=== PATIENT | male | born 1970 | race Caucasian/White ===

== ENCOUNTER 2016-12-17 05:43 | Observation (INO) ==
[2016-12-17] MEDS ORDERED: Aspirin 81 MG TAB.CHEW PO ONE (05:47)
[2016-12-17 06:06] LABS: Basophils % 0.4 %; Eosinophils # 0.1 K/mcL (0.0-0.6); Eosinophils % 1.6 %; Hematocrit 45.4 % (37.5-50.1); Hemoglobin 15.5 g/dL (12.9-16.9); Immature Granulocytes % 0.5 % (0-4); Lymphocytes # 2.6 K/mcL (0.6-4.6); Lymphocytes % 34.2 %; Mean Corpuscular HGB Conc 34.1 g/dL (31.6-35.5); Mean Corpuscular Hemoglobin 30.2 pg (28.0-33.3); Mean Corpuscular Volume 88.5 fL (83.0-100.0); Mean Platelet Volume 8.8 fL (9.4-12.4); Monocytes # 0.7 K/mcL (0.0-1.3); Monocytes % 9.6 %; Neutrophils # 4.1 K/mcL (1.6-8.9); Platelet Count 225 K/mcL (140-400); Red Blood Count 5.13 M/mcL (4.19-5.50); Red Cell Distribution Width 12.6 % (11.5-14.5); Segmented Neutrophils % 53.7 %
[2016-12-17] MEDS ORDERED: *HR* FentaNYL (PF) 100 MCG/2 ML VIAL IVP ONE (06:11)
[2016-12-17] MEDS ORDERED: Ondansetron 4 MG/2 ML VIAL IVP ONE (06:11)
--- NOTE | 2016-12-17 06:16 | Emergency Department Note ---
Disposition Clinical Impression: Chest pain Qualifiers: Chest pain type: unspecified Qualified Code(s): R07.9 - Chest pain, unspecified Disposition: Still a Patient Condition: Good Forms: ED Satisfaction Letter Time of Disposition: 06:39 General Adult HPI - General Chief complaint: ED Chest Pain Stated complaint: Chest pain Time Seen by Provider: 12/17/16 05:46 Source: patient Limitations: no limitations Nursing Notes Reviewed: Yes Vital Signs Reviewed: Yes - History of Present Illness HPI Narrative: Patient was awoken at 5:00 this morning with chest pain. Sharp in nature and reproducible on palpation also upper quadrant pain. Does have associated nausea and the pain radiates to his left shoulder. Has not tried anything to relieve the pain the pain gets worse when he takes a deep breath. Pain Scale: 10 - Related Data Home Medications Medication Instructions Recorded Confirmed Aspirin [Adult Low Dose Aspirin EC] 81 mg PO DAILY 09/27/15 09/27/15 Atorvastatin [Lipitor] 40 mg PO DAILY 09/27/15 09/27/15 Lisinopril [Zestril] 20 mg PO DAILY 09/27/15 09/27/15 Metoprolol XL (24 HR) Succ [Toprol 50 mg PO DAILY 09/27/15 09/27/15 Xl] Tamsulosin [Flomax] 0.4 mg PO DAILY 09/27/15 09/27/15 Previous Rx's Medication Instructions Recorded Hydrocodone/Acetaminophen [[place] 1 tab PO Q6H PRN #15 tab 09/27/15 5-325 Tablet] Allergies Allergy/AdvReac Type Severity Reaction Status Date / Time morphine AdvReac Headache Verified 09/26/16 00:21 nitroglycerin AdvReac "STOPS Verified 09/26/16 00:21 HEART" Review of Systems: Patient denies headache or visual changes. He does report left-sided chest pain and upper abdominal pain that radiates to his left shoulder. Does have associated shortness of breath. Also associated nausea. No vomiting. Denies any diarrhea. Does report some mild rectal bleeding that is consistent with his anal fissure. He denies any urinary symptoms. He denies any hematemesis. He denies any swelling to the extremities. He does report a cough for the past month that is intermittent with no productivity. He denies any fevers. This is associated due to the pain. All systems ED: reviewed and negative except as stated. Past Medical History - Past Medical History Attestation: Yes The following information was validated with the patient. Medical history: Reports: coronary artery disease, hyperlipidemia, hypertension , kidney stones Surgical history: Reports: other Psychiatric history: Reports: no psych history - Social History Smoking Status: Never smoker Smokeless Tobacco Status: No Alcohol use: Reports: occasionally Drug use: Reports: none Physical Exam - General Limitations: no limitations General appearance: alert, anxious, in distress (Anxiously holding his chest.) - Head Head exam: atraumatic, normocephalic, normal inspection - Eye Eye exam: Present: normal appearance, PERRL, EOMI, scleral icterus - ENT ENT exam: normal exam, normal oropharynx, mucous membranes moist - Neck Neck exam: Present: normal inspection, full ROM, trachea midline. Absent: tenderness, meningismus - Chest Chest inspection: Present: normal inspection, symmetric chest wall rise, tenderness (To palpation of sternum. This reproduces his chest pain.). Absent : rash - Respiratory Respiratory exam: Present: normal lung sounds bilaterally. Absent: respiratory distress, wheezes, accessory muscle use - Cardiovascular Cardiovascular exam: Present: regular rate, normal rhythm, normal heart sounds - Abdominal Exam Abdominal exam: Present: soft, tenderness (2 right upper and left upper quadrant.), normal bowel sounds. Absent: distention, guarding, rebound, rigidity, organomegaly - Extremities Exam Extremities exam: Present: normal inspection, full ROM, normal capillary refill. Absent: tenderness, pedal edema - Back Exam Back exam: Present: normal inspection, full ROM. Absent: tenderness - Neurological Exam Neurological exam: Present: alert, oriented X3 - Psychiatric Psychiatric exam: Present: anxious - Skin Skin exam: Present: warm, dry, intact, normal color. Absent: rash, cyanosis, diaphoresis, erythema Course Course Narrative: [facility] of a sharp chest pain that radiates to his left shoulder. He states this began at 5:00 this morning when he woke him up. He does have associated nausea but no vomiting. He states that he did have a heart catheter a little over a year ago and was told that he had 30% blockage in one of his arteries. He states he has a significant cardiac history on both sides of his family and he is engaged in his father from a heart attack. Patient is sitting on the side of the bed clutching his chest and rocking. He is cussing frequently. He is also complaining of an upper abdominal pain. He states the pain radiates across his abdomen and is associated with the chest pain. States he cannot take a deep breath due to the pain. His lung sounds are clear heart sounds are normal. His abdomen is soft on exam but he does have tenderness in his upper quadrants. He does not have any edema to his extremities. We will do a cardiac workup on the patient and likely admit him to the hospital for chest pain. We will also scan patient's chest due to his sharp pain and how anxious appearing he is to rule out a dissection. Of note he states he does have some minor rectal bleeding that is consistent with his anal fissure. He states that this is a problem he has had for several years and has been worked up for this. Vital Signs Temperature 97.6 F 12/17/16 05:43 Pulse Rate 77 12/17/16 05:43 Respiratory Rate 22 12/17/16 05:43 Blood Pressure 180/93 12/17/16 05:43 O2 Sat by Pulse Oximetry 95 12/17/16 05:43 Temperature 97.6 F 12/17/16 05:43 Pulse Rate 77 12/17/16 05:43 Respiratory Rate 22 12/17/16 05:43 Blood Pressure 180/93 12/17/16 05:43 O2 Sat by Pulse Oximetry 99 12/17/16 05:57 Oxygen Delivery Oxygen Delivery Room Air Medical Decision Making - Medical Records Medical records reviewed: Yes I reviewed the patient's medical records. - Lab Data Lab results reviewed: Yes I reviewed the patient's lab results. Result diagrams: 12/17/16 05:55 12/17/16 05:55 Lab Results 12/17/16 12/17/16 12/17/16 Range/Units 05:55 05:55 05:55 WBC 7.7 (4.3-11.1) K/mcL RBC 5.13 (4.19-5.50) M/mcL Hgb 15.5 (12.9-16.9) g/dL Hct 45.4 (37.5-50.1) % MCV 88.5 (83.0-100.0) fL MCH 30.2 (28.0-33.3) pg MCHC 34.1 (31.6-35.5) g/dL RDW 12.6 (11.5-14.5) % Plt Count 225 (140-400) K/mcL MPV 8.8 L (9.4-12.4) fL Immature Gran % 0.5 (0-4) % Seg Neutrophils % 53.7 % Lymphocytes % 34.2 % Monocytes % 9.6 % Eosinophils % 1.6 % Basophils % 0.4 % Neutrophils # 4.1 (1.6-8.9) K/mcL Lymphocytes # 2.6 (0.6-4.6) K/mcL Monocytes # 0.7 (0.0-1.3) K/mcL Eosinophils # 0.1 (0.0-0.6) K/mcL Basophils # 0.0 (0.0-0.2) K/mcL PT 10.7 (9.4-12.1) Seconds INR 1.0 APTT 35.0 (26.0-36.0) Seconds Sodium 141 (136-145) mEq/L Potassium 3.4 L (3.5-4.5) mEq/L Chloride 107 (98-109) mEq/L Carbon Dioxide 24 (19-29) mEq/L BUN 11 (8-26) mg/dL Creatinine 0.98 (0.72-1.25) mg/dL Est GFR ( Amer) > 60 (> 60) Est GFR (Non-Af Amer) > 60 (> 60) BUN/Creatinine Ratio 11 (6-26) Glucose 119 H (70-99) mg/dL Calculated Osmolality 293 (280-300) Calcium 9.0 (8.6-10.8) mg/dL Total Bilirubin 2.2 H (0.2-1.2) mg/dL Direct Bilirubin 0.7 H (0.0-0.5) mg/dL Indirect Bilirubin 1.5 H (0.0-1.2) mg/dL AST 34 (5-34) Units/L ALT 50 (0-55) Units/L Alkaline Phosphatase 93 (38-126) Units/L Troponin I (0-0.03) ng/mL Serum Total Protein 7.4 (6.0-8.3) g/dL Albumin 4.0 (3.5-5.0) g/dL Globulin 3.4 (2.4-3.5) g/dL Albumin/Globulin Ratio 1.2 (1.1-2.2) Lipase 19 (8-78) Units/L // Range/Units 05:55 WBC (4.3-11.1) K/mcL RBC (4.19-5.50) M/mcL Hgb (12.9-16.9) g/dL Hct (37.5-50.1) % MCV (83.0-100.0) fL MCH (28.0-33.3) pg MCHC (31.6-35.5) g/dL RDW (11.5-14.5) % Plt Count (140-400) K/mcL MPV (9.4-12.4) fL Immature Gran % (0-4) % Seg Neutrophils % % Lymphocytes % % Monocytes % % Eosinophils % % Basophils % % Neutrophils # (1.6-8.9) K/mcL Lymphocytes # (0.6-4.6) K/mcL Monocytes # (0.0-1.3) K/mcL Eosinophils # (0.0-0.6) K/mcL Basophils # (0.0-0.2) K/mcL PT (9.4-12.1) Seconds INR APTT (26.0-36.0) Seconds Sodium (136-145) mEq/L Potassium (3.5-4.5) mEq/L Chloride (98-109) mEq/L Carbon Dioxide (19-29) mEq/L BUN (8-26) mg/dL Creatinine (0.72-1.25) mg/dL Est GFR ( Amer) (> 60) Est GFR (Non-Af Amer) (> 60) BUN/Creatinine Ratio (6-26) Glucose (70-99) mg/dL Calculated Osmolality (280-300) Calcium (8.6-10.8) mg/dL Total Bilirubin (0.2-1.2) mg/dL Direct Bilirubin (0.0-0.5) mg/dL Indirect Bilirubin (0.0-1.2) mg/dL AST (5-34) Units/L ALT (0-55) Units/L Alkaline Phosphatase (38-126) Units/L Troponin I 0.01 (0-0.03) ng/mL Serum Total Protein (6.0-8.3) g/dL Albumin (3.5-5.0) g/dL Globulin (2.4-3.5) g/dL Albumin/Globulin Ratio (1.1-2.2) Lipase (8-78) Units/L - EKG Data EKG #1 EKG attestation: Yes I reviewed and interpreted this EKG. EKG results narrative: Normal sinus rhythm at a rate of 71. NE interval is 158. QRS duration is 98. QT is 385. QTC is 408. No signs of acute ischemia. No significant change from previous EKG dated 09/24/2015. Leanna.B.[email or web address] - Leanna.Kyaw Background: Presenting Complaint (Chest pain that woke him up at 5:00 this morning. Also having upper quadrant abdominal pain. Associated nausea. The pain radiates to his left shoulder.), Relevant PMH, Meds, & Allergies (Has had a cardiac catheter greater than a year ago that showed 30% stenosis. Recent increase in his hypertension medication.) Assessment: Course and respsone to treatment (Patient was given 324 of aspirin, Zofran, and fentanyl. Of note he is allergic to morphine and nitroglycerin.), Outstanding Labs Recommendation: Recommendation based on pending studies, treatments, or consults (Likely admit patient to the hospital for cardiac workup. EKG showed no ST elevation or depression. We are still waiting a CTA to rule out dissection.) Leanna.[email or web address] Report Given to: Dr Cynthia Persaud Repor Time: 06:41
[2016-12-17 06:18] LABS: BUN/Creatinine Ratio 11 (6-26); Blood Urea Nitrogen 11 mg/dL (8-26); Carbon Dioxide 24 mEq/L (19-29); Chloride 107 mEq/L (98-109); Glucose 119 mg/dL (70-99); Osmolality,Calculated 293 (280-300); Potassium 3.4 mEq/L (3.5-4.5); Prothrombin Time 10.7 Seconds (9.4-12.1); Sodium 141 mEq/L (136-145); eGFR For African Americans > 60 (> 60); eGFR For Non-African Americans > 60 (> 60)
--- NOTE | 2016-12-17 06:27 | Emergency Department Note ---
START Narrative - START START: I examined this patient and my medical decision-making was reviewed with the SHEET TAKER/PA/Advanced Practice Nurse/Resident Physician. I agree with the documented findings, disposition and treatment plan as described except to the extent set forth below. Emergency department complaining of chest pain. Patient states the pains in his lower chest and radiates across both sides. Also radiates to his left shoulder. Describes it as sharp. States he has had a prior catheter that showed a small blockage. No stents. On exam he is uncomfortable rocking in the bed. Lungs clear and heart regular. Plan. EKG has no ischemic changes. Cardiac workup. We will CTA for dissection. Signed out to Dr. Thornton pending disposition after CTs.
[2016-12-17 06:30] LABS: Alanine Aminotransferase 50 Units/L (0-55); Albumin/Globulin Ratio 1.2 (1.1-2.2); Alkaline Phosphatase 93 Units/L (38-126); Aspartate Amino Transferase 34 Units/L (5-34); Bilirubin,Direct 0.7 mg/dL (0.0-0.5); Bilirubin,Indirect 1.5 mg/dL (0.0-1.2); Bilirubin,Total 2.2 mg/dL (0.2-1.2); Globulin 3.4 g/dL (2.4-3.5); Lipase 19 Units/L (8-78); Total Protein 7.4 g/dL (6.0-8.3)
--- NOTE | 2016-12-17 07:20 | Emergency Department Note ---
Disposition Clinical Impression: Chest pain Qualifiers: Chest pain type: unspecified Qualified Code(s): R07.9 - Chest pain, unspecified Disposition: Admitted As Inpatient Condition: Good Referrals: Pritesh Crow Jr, MD [Primary Care Provider] - Forms: ED Satisfaction Letter Time of Disposition: 08:17 General Adult HPI - General Chief complaint: ED Chest Pain Stated complaint: Chest pain Time Seen by Provider: 12/17/16 05:46 Source: patient Limitations: no limitations - History of Present Illness Pain Scale: 3 - Related Data Home Medications Medication Instructions Recorded Confirmed Aspirin [Adult Low Dose Aspirin EC] 81 mg PO DAILY 09/27/15 09/27/15 Atorvastatin [Lipitor] 40 mg PO DAILY 09/27/15 09/27/15 Lisinopril [Zestril] 20 mg PO DAILY 09/27/15 09/27/15 Metoprolol XL (24 HR) Succ [Toprol 50 mg PO DAILY 09/27/15 09/27/15 Xl] Tamsulosin [Flomax] 0.4 mg PO DAILY 09/27/15 09/27/15 Previous Rx's Medication Instructions Recorded Hydrocodone/Acetaminophen [[place] 1 tab PO Q6H PRN #15 tab 09/27/15 5-325 Tablet] Allergies Allergy/AdvReac Type Severity Reaction Status Date / Time morphine AdvReac Headache Verified 09/26/16 00:21 nitroglycerin AdvReac "STOPS Verified 09/26/16 00:21 HEART" Past Medical History - Past Medical History Medical history: Reports: coronary artery disease, hyperlipidemia, hypertension , kidney stones Surgical history: Reports: other Psychiatric history: Reports: no psych history - Social History Smoking Status: Never smoker Smokeless Tobacco Status: No Alcohol use: Reports: occasionally Drug use: Reports: none Physical Exam - General Limitations: no limitations General appearance: alert, anxious, in distress (Anxiously holding his chest.) Course - Reevaluation(s) Reevaluation #1: 46-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 He describes across his lower chest severe. Workup included cardiac and also a CT scan to rule out a dissection. The patient has multiple risk factors his father had his first RI at about 45 years of age and actually from heart disease. Patient has a history of hypertension hypercholesterolemia. Patient also has a slight elevation in his bilirubin and he states he's had that his entire life. Time: 07:18 - Consultations Consultation #1: Discussed with Dr. Puente, admit. Time: 08:16 Vital Signs Temperature 97.6 F 12/17/16 05:43 Pulse Rate 77 12/17/16 05:43 Respiratory Rate 22 12/17/16 05:43 Blood Pressure 180/93 12/17/16 05:43 O2 Sat by Pulse Oximetry 95 12/17/16 05:43 Temperature 97.6 F 12/17/16 05:43 Pulse Rate 60 12/17/16 07:20 Respiratory Rate 16 12/17/16 07:20 Blood Pressure 162/99 12/17/16 07:20 O2 Sat by Pulse Oximetry 99 12/17/16 07:20 Oxygen Delivery Oxygen Delivery Room Air Medical Decision Making - Lab Data Result diagrams: 12/17/16 05:55 12/17/16 05:55 Lab Results 12/17/16 12/17/16 12/17/16 Range/Units 05:55 05:55 05:55 WBC 7.7 (4.3-11.1) K/mcL RBC 5.13 (4.19-5.50) M/mcL Hgb 15.5 (12.9-16.9) g/dL Hct 45.4 (37.5-50.1) % MCV 88.5 (83.0-100.0) fL MCH 30.2 (28.0-33.3) pg MCHC 34.1 (31.6-35.5) g/dL RDW 12.6 (11.5-14.5) % Plt Count 225 (140-400) K/mcL MPV 8.8 L (9.4-12.4) fL Immature Gran % 0.5 (0-4) % Seg Neutrophils % 53.7 % Lymphocytes % 34.2 % Monocytes % 9.6 % Eosinophils % 1.6 % Basophils % 0.4 % Neutrophils # 4.1 (1.6-8.9) K/mcL Lymphocytes # 2.6 (0.6-4.6) K/mcL Monocytes # 0.7 (0.0-1.3) K/mcL Eosinophils # 0.1 (0.0-0.6) K/mcL Basophils # 0.0 (0.0-0.2) K/mcL PT 10.7 (9.4-12.1) Seconds INR 1.0 APTT 35.0 (26.0-36.0) Seconds Sodium 141 (136-145) mEq/L Potassium 3.4 L (3.5-4.5) mEq/L Chloride 107 (98-109) mEq/L Carbon Dioxide 24 (19-29) mEq/L BUN 11 (8-26) mg/dL Creatinine 0.98 (0.72-1.25) mg/dL Est GFR ( Amer) > 60 (> 60) Est GFR (Non-Af Amer) > 60 (> 60) BUN/Creatinine Ratio 11 (6-26) Glucose 119 H (70-99) mg/dL Calculated Osmolality 293 (280-300) Calcium 9.0 (8.6-10.8) mg/dL Total Bilirubin 2.2 H (0.2-1.2) mg/dL Direct Bilirubin 0.7 H (0.0-0.5) mg/dL Indirect Bilirubin 1.5 H (0.0-1.2) mg/dL AST 34 (5-34) Units/L ALT 50 (0-55) Units/L Alkaline Phosphatase 93 (38-126) Units/L Troponin I (0-0.03) ng/mL Serum Total Protein 7.4 (6.0-8.3) g/dL Albumin 4.0 (3.5-5.0) g/dL Globulin 3.4 (2.4-3.5) g/dL Albumin/Globulin Ratio 1.2 (1.1-2.2) Lipase 19 (8-78) Units/L // Range/Units 05:55 WBC (4.3-11.1) K/mcL RBC (4.19-5.50) M/mcL Hgb (12.9-16.9) g/dL Hct (37.5-50.1) % MCV (83.0-100.0) fL MCH (28.0-33.3) pg MCHC (31.6-35.5) g/dL RDW (11.5-14.5) % Plt Count (140-400) K/mcL MPV (9.4-12.4) fL Immature Gran % (0-4) % Seg Neutrophils % % Lymphocytes % % Monocytes % % Eosinophils % % Basophils % % Neutrophils # (1.6-8.9) K/mcL Lymphocytes # (0.6-4.6) K/mcL Monocytes # (0.0-1.3) K/mcL Eosinophils # (0.0-0.6) K/mcL Basophils # (0.0-0.2) K/mcL PT (9.4-12.1) Seconds INR APTT (26.0-36.0) Seconds Sodium (136-145) mEq/L Potassium (3.5-4.5) mEq/L Chloride (98-109) mEq/L Carbon Dioxide (19-29) mEq/L BUN (8-26) mg/dL Creatinine (0.72-1.25) mg/dL Est GFR ( Amer) (> 60) Est GFR (Non-Af Amer) (> 60) BUN/Creatinine Ratio (6-26) Glucose (70-99) mg/dL Calculated Osmolality (280-300) Calcium (8.6-10.8) mg/dL Total Bilirubin (0.2-1.2) mg/dL Direct Bilirubin (0.0-0.5) mg/dL Indirect Bilirubin (0.0-1.2) mg/dL AST (5-34) Units/L ALT (0-55) Units/L Alkaline Phosphatase (38-126) Units/L Troponin I 0.01 (0-0.03) ng/mL Serum Total Protein (6.0-8.3) g/dL Albumin (3.5-5.0) g/dL Globulin (2.4-3.5) g/dL Albumin/Globulin Ratio (1.1-2.2) Lipase (8-78) Units/L - Radiology Data Radiology results reviewed: Yes I reviewed the patient's radiology results. Chest X-Ray 12/17/16 05:47 IMPRESSION: No acute findings. D/ / Janny Gomez MD / Janny Gomez MD Interpreting Provider: Janny Gomez MD Abdomen/Pelvis CTA 12/17/16 06:25 IMPRESSION: 1. No evidence of acute aortic pathology. No aneurysm, dissection or significant plaque. 2. No acute pulmonary findings. 3. No acute findings within the abdomen or pelvis. Colonic diverticulosis with no acute features. 4. Nonobstructive bilateral nephrolithiasis. D/ / Isac Olivas MD / Isac Olivas MD Interpreting Provider: Isac Olivas MD Chest CTA 12/17/16 06:25
--- NOTE | 2016-12-17 09:04 | Internal Med History&Physical ---
Date of Encounter: 12/17/16 Time of Encounter: 09:00 Assessment and Plan (1) Precordial chest pain Current visit: Yes Status: Acute Patient has typical precordial chest pain that started at rest. He has heavy family history of premature coronary artery disease, male gender and hypertension as risk factors. He has had stress test in the past which was negative. He has had a cardiac catheter 2 years ago which per his report had a 30% blockage. We will request catheterization records from [facility]. Consult cardiology. phototypesetting equipment monitor. Trend troponin. He is allergic to morphine and nitroglycerin. We will use IV fentanyl for chest pain. (2) Essential hypertension Current visit: Yes Status: Acute We will continue with metoprolol and lisinopril. (3) DVT prophylaxis Current visit: Yes Status: Acute Encourage ambulation. Short stay expected, no pharmacological prophylaxis as indicated. (4) Elevated bilirubin Current visit: Yes Status: Acute He has a history of chronic benign elevated bilirubin, possibly secondary to undiagnosed Gilbert's syndrome. Continue outpatient follow-up. Internal Medicine - H&P: HPI Chief complaint: Chest pain Admitted From: Emergency Dept Plans for Post Hospital Care: Home History of present illness: Mr. Desir is a 46 year old male with past medical history significant for hypertension and hyperlipidemia who presented to the hospital for evaluation of chest pain. The patient states that he woke up at 5 this morning with severe substernal sharp and pressure-like chest pain associated with lightheadedness and nausea. He was brought to the emergency department where he continued to have chest pain and vomited. He states that vomiting gave him some relief. His EKG and troponin were negative. He was given fentanyl, Zofran and aspirin and that brought his pain down to 0/10. Currently his chest pain-free. He was referred for admission. Review of systems: Positive for joint aches and pains including left shoulder lower back and ankle pain. Positive for migraine headaches. The remainder of a temporary review of systems was negative. Family history positive for multiple family members with heart disease including patient's father had an AK at age 50. 2 sisters and the patient's brother suffer with heart disease. Social history: Patient is a lifelong nonsmoker, drinks alcohol socially and does not use any recreational drugs. 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 Past Med Surg Social Fam HX - Past Medical History Medical history: coronary artery disease, hyperlipidemia, hypertension, kidney stones Psychiatric history: no psych history - Past Surgical History Surgical History: other - Social History Smoking Status: Never smoker Smokeless Tobacco Status: No Alcohol use: occasionally Drug use: none Internal Medicine - H&P: Meds Aspirin [Adult Low Dose Aspirin EC] 81 mg PO DAILY 09/27/15 [History] Atorvastatin [Lipitor] 40 mg PO DAILY 09/27/15 [History] Metoprolol XL (24 HR) Succ [Toprol Xl] 50 mg PO DAILY 09/27/15 [History] Ibuprofen [Ibuprofen] 800 mg PO TID PRN 12/17/16 [History] Lisinopril [Zestril] 40 mg PO DAILY 12/17/16 [History] Allergies morphine Adverse Reaction (Verified 12/17/16 09:39) Headache BP WENT UP nitroglycerin Adverse Reaction (Verified 12/17/16 09:39) "STOPS HEART" All Systems PM: A 10-system review of systems was performed and is negative for pertinent findings except as documented above in the HPI. - Constitutional Vitals: Temp Pulse Resp BP Pulse Ox 97.6 F 61 16 164/110 100 12/17/16 05:43 12/17/16 08:54 12/17/16 08:54 12/17/16 08:54 12/17/16 08:54 - Eye Eye exam: Present: PERRL, conjuntiva pink, sclera anicteric Pupils: Present: PERRL - Respiratory Respiratory exam: Present: CTAB. Absent: accessory muscle use, rales, rhonchi, wheezes - Cardiovascular Cardiovascular exam: Present: RRR, +S1, +S2. Absent: diastolic murmur, gallop, rubs, systolic murmur - GI/Abdominal GI/Abdominal exam: Present: normal bowel sounds, soft, no peritoneal signs. Absent: distended, tenderness - Extremities Exam Extremities exam: Present: warm, radial pulses palpable and symetrical. Absent : calf tenderness, cyanotic, pedal edema - Neurological Exam Neurological exam: Present: CN II-XII intact, oriented X3, no focal deficits. Absent: pronater drift, facial droop, speech deficit - Skin Skin exam: Present: dry, intact Internal Med - H&P Results - Labs CBC & Chem 7: 12/17/16 05:55 12/17/16 05:55 - EKG Data -: EKG Interpreted by Myself EKG shows normal: sinus rhythm (71 bpm), axis, intervals, QRS complexes, ST-T waves
[2016-12-17] MEDS ORDERED: Mag Hydrox/Al Hydrox/Simeth 30 ML UDC PO PRN (10:02)
[2016-12-17] MEDS ORDERED: Acetaminophen 325 MG TABLET PO PRN (10:02)
[2016-12-17] MEDS: Lisinopril 20 MG TABLET PO SCH (10:21)
[2016-12-17] MEDS: Metoprolol XL (24 HR) Succ 50 MG TAB.ER.24H PO SCH (10:21)
--- NOTE | 2016-12-17 12:02 | Cardiology Consult Note ---
Date of Encounter: 12/17/16 Time of Encounter: 11:59 Assessment and Plan (1) Chest pain Current Visit: Yes Status: Acute At this time appears atypical. Initial EKG and enzymes negative. Would continue DENG, check echo and get outside records. Qualifiers: Chest pain type: unspecified Qualified Code(s): R07.9 - Chest pain, unspecified Discussion w patient/family: The assessment and plan as outlined above was discussed with the patient and/or family members who expressed understanding and agreement. All questions were answered. Thank you for involving us in the care of your patient. Please call with any questions. History of Present Illness Consult date: 12/17/16 Requesting physician: Rico Puente Consult reason: Chest pain Chief complaint: Chest Pain History of present illness: Mr. Desir is a 46 year old male who presented with acute onset of epigastic pain. The pain began at rest, actually improved with exertion and was pleuritic. He was nauseous and vomited. This seemed to resolve his chest pain. He is currently pain free. Notes he had a heart cath 2 years ago that showed minimal disease. Past Med Surg Social Fam HX - Past Medical History Medical history: coronary artery disease, hyperlipidemia, hypertension, kidney stones Psychiatric history: no psych history - Past Surgical History Surgical History: other - Social History Smoking Status: Never smoker Smokeless Tobacco Status: No Alcohol use: occasionally Drug use: none Medications and Allergies Aspirin [Adult Low Dose Aspirin EC] 81 mg PO DAILY 09/27/15 [History] Atorvastatin [Lipitor] 40 mg PO DAILY 09/27/15 [History] Metoprolol XL (24 HR) Succ [Toprol Xl] 50 mg PO DAILY 09/27/15 [History] Ibuprofen [Ibuprofen] 800 mg PO TID PRN 12/17/16 [History] Lisinopril [Zestril] 40 mg PO DAILY 12/17/16 [History] Allergies morphine Adverse Reaction (Verified 12/17/16 09:39) Headache BP WENT UP nitroglycerin Adverse Reaction (Verified 12/17/16 09:39) "STOPS HEART" All Systems Review: A 10-system review of systems was performed and is negative for pertinent findings except as documented above in the HPI. Physical Examination Vital Signs, Last 4 Hours Temp Pulse Resp BP Pulse Ox 12/17/16 10:29 97.6 F 65 14 162/99 97 12/17/16 08:54 61 16 164/110 100 General: Conversant, No Apparent Distress HEENT: Atraumatic, Normocephaly, Mucus Membranes Moist Neck: No JVD, Normal carotid pulses Cardiac: Reg Rate and Rhythm, Normal S1 and S2, No Murmur Lungs: Normal Breath Sounds, No Wheeze, Rales, Rhonchi Neuro: Alert and responsive, No focal deficits noted Abdomen: Soft, Non-Tender Skin: No rashes noted on visualized skin Musculoskeletal: No Chest Wall Tenderness Extremities: No Clubbing, No Cyanosis, No Edema, Normal Pulses Results 12/17/16 05:55 12/17/16 05:55 - EKG Interpretation EKG results cardiology: normal ECG Consult Discharge Plan - Plan Referrals: Pritesh Crow Jr, MD [Primary Care Provider] -
[2016-12-18 05:07] LABS: Basophils % 0.5 %; Eosinophils # 0.1 K/mcL (0.0-0.6); Eosinophils % 1.3 %; Hematocrit 42.4 % (37.5-50.1); Hemoglobin 14.2 g/dL (12.9-16.9); Immature Granulocytes % 0.7 % (0-4); Immature Platelets 1.9 % (1.1-6.1); Lymphocytes # 2.5 K/mcL (0.6-4.6); Lymphocytes % 32.5 %; Mean Corpuscular HGB Conc 33.5 g/dL (31.6-35.5); Mean Corpuscular Hemoglobin 29.8 pg (28.0-33.3); Mean Corpuscular Volume 88.9 fL (83.0-100.0); Mean Platelet Volume 8.7 fL (9.4-12.4); Monocytes # 0.5 K/mcL (0.0-1.3); Monocytes % 6.8 %; Neutrophils # 4.4 K/mcL (1.6-8.9); Platelet Count 218 K/mcL (140-400); Red Blood Count 4.77 M/mcL (4.19-5.50); Red Cell Distribution Width 12.8 % (11.5-14.5); Segmented Neutrophils % 58.2 %
[2016-12-18 05:24] LABS: BUN/Creatinine Ratio 13 (6-26); Blood Urea Nitrogen 12 mg/dL (8-26); Calcium 8.7 mg/dL (8.6-10.8); Carbon Dioxide 22 mEq/L (19-29); Chloride 110 mEq/L (98-109); Chol/HDL Ratio 4.6 (0-4.9); Cholesterol 173 mg/dL (< 200); Glucose 99 mg/dL (70-99); HDL Cholesterol 38 mg/dL (40-59); LDL Cholesterol,Calculated 98 mg/dL (0-99); Osmolality,Calculated 290 (280-300); Potassium 4.1 mEq/L (3.5-4.5); Triglycerides 184 mg/dL (< 150); eGFR For African Americans > 60 (> 60); eGFR For Non-African Americans > 60 (> 60)
[2016-12-18 05:34] LABS: Sodium 140 mEq/L (136-145)
[2016-12-18] MEDS: Lisinopril 20 MG TABLET PO SCH (07:33)
[2016-12-18] MEDS: Metoprolol XL (24 HR) Succ 50 MG TAB.ER.24H PO SCH (07:33)
[2016-12-18] MEDS ORDERED: Aspirin Enteric Coated 81 MG Tablet PO SCH (09:00)
[2016-12-18 12:03] VITALS: BP 137/86
--- NOTE | 2016-12-18 13:28 | Cardiology Progress Note ---
Date of Encounter: 12/18/16 Time of Encounter: 13:26 Assessment and Plan (1) Chest pain Current Visit: Yes Status: Acute At this time appears atypical. Chest pain last night during dinner that lasted seconds, then subsided and has not recurred. Troponin negative x 3. No acute EKG changes. Echo shows EF 60%, moderate diastolic dysfunction. [facility] records obtained from [facility] 08/2014 showed nonobstructive CAD. There was mild disease in the prox RCA, mid LAD and mid D1 (30%). Continue ASA, Statin, BB. No further cardiac testing warranted. Cardiology signing off. Reconsult PRN. Follow-up with PCP as outpt. Qualifiers: Chest pain type: unspecified Qualified Code(s): R07.9 - Chest pain, unspecified Discussion w patient/family: The assessment and plan as outlined above was discussed with the patient and/or family members who expressed understanding and agreement. All questions were answered. Thank you for involving us in the care of your patient. Please call with any questions. I will discuss all the above with Dr. Solis and make changes as necessary. Subjective Principal diagnosis: Chest pain Interval history: Pt presented with atypical chest pain, negative troponins and negative EKG. Pt reports episode of sharp chest pain yesterday evening during dinner, lasted seconds then subsided with no recurrence since. Records obtained. Nonobstructive CAD on [facility] at [facility] in 08/2014. There was mild disease in prox RCA, mid LAD, and mid D1 (30%). Echo resulted--EF 60%, moderate diastolic dysfunction. Objective Vital Signs, Last 4 Hours Temp Pulse Resp BP Pulse Ox 12/18/16 12:00 97.8 F 58 18 137/86 96 Vital Signs Temp Pulse Resp BP Pulse Ox 12/18/16 12:00 97.8 F 58 18 137/86 96 12/18/16 07:29 97.7 F 55 18 125/78 97 12/18/16 03:28 97.5 F L 64 15 149/78 96 12/17/16 23:51 98.1 F 62 13 142/77 98 12/17/16 20:45 97.9 F 66 16 170/60 96 12/17/16 15:15 97.8 F 64 14 153/82 96 Intake and Output 12/17/16 12/18/1612/18/17 23:59 07:59 15:59 Intake Total 520 / 520 100 / 100 360 / 360 Output Total 600 / 600 0 / 0 500 / 500 Balance -80 / -80 100 / 100 -140 / -140 Intake: Oral 520 / 520 100 / 100 360 / 360 Output: Urine 600 / 600 0 / 0 500 / 500 Other: Meal Dinner Breakfast Percent of Meal Consumed 100% 100% Weight 137.076 kg Patient Weight 12/18/16 23:59 Weight 137.076 kg General: Conversant, No Apparent Distress HEENT: Atraumatic, Normocephaly, Mucus Membranes Moist Neck: No JVD, Normal carotid pulses Cardiac: Reg Rate and Rhythm, Normal S1 and S2, No Murmur Lungs: Normal Breath Sounds, No Wheeze, Rales, Rhonchi Neuro: Alert and responsive, No focal deficits noted Abdomen: Soft, Non-Tender Skin: No rashes noted on visualized skin Musculoskeletal: No Chest Wall Tenderness Extremities: No Clubbing, No Cyanosis, No Edema, Normal Pulses Results 12/18/16 04:44 12/18/16 04:44 Lab Results 12/17/16 12/18/16 12/18/16 17:24 04:44 04:44 WBC 7.6 Hgb 14.2 Hct 42.4 Plt Count 218 Sodium 140 Potassium 4.1 Chloride 110 H Carbon Dioxide 22 BUN 12 Creatinine 0.94 Glucose 99 Calcium 8.7 Magnesium 2.0 Troponin I 0.01 Short CBC 12/18/16 Range/Units 04:44 WBC 7.6 (4.3-11.1) K/mcL Hgb 14.2 (12.9-16.9) g/dL Hct 42.4 (37.5-50.1) % Plt Count 218 (140-400) K/mcL Neutrophils # 4.4 (1.6-8.9) K/mcL BMP 12/18/16 Range/Units 04:44 Sodium 140 (136-145) mEq/L Potassium 4.1 (3.5-4.5) mEq/L Chloride 110 H (98-109) mEq/L Carbon Dioxide 22 (19-29) mEq/L BUN 12 (8-26) mg/dL Creatinine 0.94 (0.72-1.25) mg/dL Glucose 99 (70-99) mg/dL Calcium 8.7 (8.6-10.8) mg/dL Cardiac Enzymes 12/17/16 Range/Units 17:24 Troponin I 0.01 (0-0.03) ng/mL Impressions Abdomen/Pelvis CTA 12/17/16 06:25 IMPRESSION: 1. No evidence of acute aortic pathology. No aneurysm, dissection or significant plaque. 2. No acute pulmonary findings. 3. No acute findings within the abdomen or pelvis. Colonic diverticulosis with no acute features. 4. Nonobstructive bilateral nephrolithiasis. D/ / 12/17/2016 08:00:25 Isac Olivas MD / eris Interpreting Provider: Isac Olivas MD Chest CTA 12/17/16 06:25 IMPRESSION: 1. No evidence of acute aortic pathology. No aneurysm, dissection or significant plaque. 2. No acute pulmonary findings. 3. No acute findings within the abdomen or pelvis. Colonic diverticulosis with no acute features. 4. Nonobstructive bilateral nephrolithiasis. D/ / 12/17/2016 08:00:25 Isac Olivas MD / eris Interpreting Provider: Isac Olivas MD Active Medications Acetaminophen (Tylenol) 650 mg PO Q6HR PRN PRN Reason: Mild Pain (1-3) Stop: 06/18/17 10:03 Last Admin: 12/18/16 07:35 Dose: 650 mg Al Hydrox/Mg Hydrox/Simethicone (Maalox) 15 ml PO Q6HR PRN PRN Reason: Dyspepsia Stop: 06/18/17 10:03 Aspirin (Aspirin Ec) 81 mg PO DAILY CLOTILDE Stop: 06/19/17 09:01 Last Admin: 12/18/16 07:33 Dose: 81 mg Atorvastatin Calcium (Lipitor) 40 mg PO HS CLOTILDE Stop: 06/18/17 21:01 Last Admin: 12/17/16 21:02 Dose: 40 mg Tramadol HCl 50 mg/ (Acetaminophen 325 mg) 0 mg PO Q6H PRN; Protocol PRN Reason: Moderate Pain Stop: 06/18/17 10:07 Last Admin: 12/17/16 21:02 Dose: 1 each Lisinopril (Zestril) 40 mg PO DAILY [facility] Stop: 06/18/17 10:16 Last Admin: 12/18/16 07:33 Dose: 40 mg Metoprolol Succinate (Toprol Xl) 50 mg PO DAILY [facility] Stop: 06/18/17 10:16 Last Admin: 12/18/16 07:33 Dose: 50 mg - Imaging and Cardiology Echo: report reviewed Cardiac cath: report reviewed - EKG Interpretation EKG results cardiology: other (24 hour tele AVG HR 63, SR, no significant pauses or arrhythmias.) Consult Discharge Plan - Plan Referrals: Pritesh Crow Jr, MD [Primary Care Provider] -
--- NOTE | 2016-12-18 15:03 | Discharge Summary ---
Date of Encounter: 12/18/16 Time of Encounter: 15:00 - Discharge Diagnosis (1) Chest pain Priority: Primary Status: Acute Qualifiers: Chest pain type: unspecified Qualified Code(s): R07.9 - Chest pain, unspecified (2) Essential hypertension Priority: Secondary Status: Acute (3) DVT prophylaxis Priority: Secondary Status: Acute - Discharge Medications Home Medications: Aspirin [Adult Low Dose Aspirin EC] 81 mg PO DAILY 09/27/15 [History] Atorvastatin [Lipitor] 40 mg PO DAILY 09/27/15 [History] Metoprolol XL (24 HR) Succ [Toprol Xl] 50 mg PO DAILY 09/27/15 [History] Lisinopril [Zestril] 40 mg PO DAILY 12/17/16 [History] Allergies/Adverse Reactions: Allergies morphine Adverse Reaction (Verified 12/17/16 09:39) Headache BP WENT UP nitroglycerin Adverse Reaction (Verified 12/17/16 09:39) "STOPS HEART" Procedures/tests Complete & Pending: Procedures Performed prior 72 hours Category Date Time Status EV echocardiogram Stat Y 12/18/16 15:33 Completed Date of admission: 12/17/16 08:41 Primary care physician: Pritesh Crow Jr, MD Consults: 12/17/16 10:04 Consult to Physician [CONS] Routine Consulting Provider: Abhijit Ballard Reason for Consult: CP Time Notified: 10:05 Call Completed: Yes Discharging clinician: Branden Rinaldi Anticipated date of discharge: 12/18/16 - Patient Status Disposition: Home, Self-Care Condition: Good Functional capacity at discharge: independent ambulation Overall status at discharge: patient is back to baseline - Discharge Instructions Follow Up With: Pritesh Crow Jr, MD [Primary Care Provider] - 12/26/16 11:00 am - Diet and Activity Activity: resume usual activities as tolerated Diet: advance to your usual diet Interval History: Abdifatah Tapia is a 46-year-old male presented with chest pain which at this time appears atypical. Chest pain last night during dinner that lasted seconds, then subsided and has not recurred.Troponin negative x 3.No acute EKG changes.Echo shows EF 60%, moderate diastolic dysfunction. [facility] records obtained from [place] 08/2014 showed nonobstructive CAD. There was mild disease in the prox RCA, mid LAD and mid D1 (30%). Continue ASA, Statin, BB. No further cardiac testing warranted per cardiology. Patient had a CT chest abdomen and pelvis last night in here which was quite unremarkable.. Hospital course: Mr. Desir is a 46 year old male - Time Spent with Patient Total time spent providing and/or coordinating discharge services: Less than 30 minutes - Constitutional Vitals: Temp Pulse Resp BP Pulse Ox 97.8 F 58 18 137/86 96 12/18/16 12:00 12/18/16 12:00 12/18/16 12:00 12/18/16 12:00 12/18/16 12:00 - Head Head exam: Present: atraumatic, normocephalic - Eye Eye exam: Present: PERRL, conjuntiva pink, sclera anicteric Pupils: Present: PERRL - Neck Neck exam general surgery: Present: supple, trachea midline. Absent: lymphadenopathy - Respiratory Respiratory exam: Present: CTAB. Absent: accessory muscle use, rales, rhonchi, wheezes - Cardiovascular Cardiovascular exam: Present: RRR, +S1, +S2. Absent: diastolic murmur, gallop, rubs, systolic murmur - GI/Abdominal GI/Abdominal exam: Present: normal bowel sounds, soft, no peritoneal signs. Absent: distended, tenderness - Extremities Exam Extremities exam: Present: warm, radial pulses palpable and symetrical. Absent : calf tenderness, cyanotic, pedal edema - Neurological Exam Neurological exam: Present: CN II-XII intact, oriented X3, no focal deficits. Absent: pronater drift, facial droop, speech deficit - Skin Skin exam: Present: dry, intact
--- NOTE | 2016-12-18 16:58 | Electrocardiograph Report ---
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
== END 2016-12-18 15:37 | disposition home or self-care (01) ==
LOC: EMEROO 05:43 → 3ANU 05:43
PROVIDERS: ADMIT Internal Medicine; ATTEND Internal Medicine